=== PATIENT | female | born 1960 | race Caucasian/White ===

== ENCOUNTER → 2020-02-07 12:53 | Outpatient (CLI) | payer OTHER, SELFPAY ==
--- NOTE | ~2020-02-07 | CT_ITS ---
EXAMINATION: CT abdomen pelvis wo con DATE: 02/07/2020 13:08 INDICATION: Right periumbilical pain, flank pain. Normal urinalysis. TECHNIQUE: Computed tomography (CT) of the abdomen and pelvis was performed without intravenous contr ast. Automated exposure control and iterative reconstruction technique were employed. Exam dose: 909 .13 mGy-cm total exam DLP. COMPARISON: 02/21/2015 CT abdomen pelvis. FINDINGS: The lung bases are clear of infiltrate or consolidation. Status post cholecystectomy. No hepatic, splenic, pancreatic, adrenal or renal space occupying mass lesion is detected. No bile duct or pancreatic duct dilatation. No urinary tract calculus or hydroureteronephrosis. The urinary bladder, uterus and adnexal areas are unremarkable. Normal appendix. There is no evidence of appendicitis. There is a prominent amount of fecal material in the rectum and colon but no bowel obstruction. No bowel wall thickening, pneumatosis or intraperit wallace free air is evident. There is minimal colonic diverticulosis; no CT evidence of diverticulitis. Normal caliber and minimal calcification of the abdominal aorta. No intraperitoneal or retroperitonea l or pelvic mass lesion or adenopathy or ascites. Included skeletal structures are unremarkable, with the exception of severe degenerative disc disease and mild associated retrolisthesis at L5-S1, and degenerative spurring of the lower thoracic spine a nd lumbar apophyseal joints. IMPRESSION: Normal appendix No urinary tract calculus or hydroureteronephrosis Status post cholecystectomy Reviewed, dictated and finalized at Location A. Reviewed, dictated and finalized at location B.
== END ==
PROVIDERS: Visit Provider Family Medicine
DX: R10.9 Unspecified abdominal pain (principal); Z90.49 Acquired absence of other specified parts of digestive tract
CPT/HCPCS: 74176

== ENCOUNTER 2021-04-15 14:56 | Outpatient (CLI) | payer OTHER, SELFPAY ==
--- NOTE | ~2021-04-15 | DEXA_ITS ---
Bone Density Report Name: Renée Becerra Age: 61 Sex: Female Ethnicity: White Date of : 1960 Indication: postmenopausal; asthma or emphysema; Referring Provider: LYN DICKINSON Study: Bone densitometry was performed. Exam Date: April 15, 2021 Accession number: [id number] Bone Density: Region BMD T-score Z-score Classification AP Spine (L1-L4) 1.153 1.0 2.6 Normal Femoral Neck (Left) 0.740 -1.0 0.4 Normal Total Hip (Left) 0.967 0.2 1.3 Normal Total Hip Bilateral Avg 0.972 0.3 1.4 Normal Femoral Neck (Right) 0.815 -0.3 1.1 Normal Total Hip (Right) 0.976 0.3 1.4 Normal World Health Organization criteria for BMD impression classify patients as: Normal (T-score at or above -1.0), Osteopenia (T-score between -1.0 and -2.5), or Osteoporosis (T-score at or below -2.5). 10-year Fracture Risk: FRAX not reported because: All T-scores for Spine Total, Hip Total, Femoral Neck at or above -1.0 Previous Exams: Region Exam Age BMD T-score BMD Change BMD Change Date g/cm2 vs Baseline vs Previous AP Spine(L1-L4) 04/15/2021 61 1.153 1.0 0.018(1.6%)# 0.062(5.7%)* 08/04/2013 53 1.091 0.4 -0.044(-3.9%)# -0.044(-3.9%)# 01/21/2009 48 1.135 0.8 Total Hip(Left) 04/15/2021 61 0.967 0.2 0.004(0.4%)# -0.021(-2.1%) 08/04/2013 53 0.988 0.4 0.025(2.6%)# 0.025(2.6%)# 01/21/2009 48 0.963 0.2 Total Hip(Right) 04/15/2021 61 0.976 0.3 0.038(4.0%)# -0.003(-0.3%) 08/04/2013 53 0.979 0.3 0.040(4.3%)# 0.040(4.3%)# 01/21/2009 48 0.938 0.0 *Denotes significance at 95% confidence level, LSC for AP Spine = 0.022 g/cm2, LSC for Total Hip = 0.027 g/cm2 Clinical Information Provided by Patient: Has used the following medications: Vitamin D, Calcium Has the following medical conditions: Asthma or Emphysema Patient maximum height was 63.5 Menopause Age: 50 Onset of menses at age 12 Number of children 3 Impression: The patient has normal bone mass. No significant bone loss was observed. Discussion: BONE DENSITY IS ABOVE THE MINIMUM DESIRABLE LEVEL AT ALL SKELETAL SITES TESTED. This patient?s bone mineral density is above the minimum desirable level (T-score -1.0 or better) at all sites measured. The patient should follow a healthful lifestyle (good nutrition with adequate calcium and vitamin D, and appropriate weight-bearing exercise). Follow-Up: Consider repeating this study in 5 years or sooner if there
--- NOTE | ~2021-04-15 | MM_ITS ---
EXAMINATION: MM screening hayley BI w zach HISTORY: Screening mammogram TECHNIQUE: Craniocaudal and mediolateral oblique 3-D tomosynthesis images were obtained and synthetic 2-D images were generated. CAD analysis was submitted and interpreted. COMPARISON: 10/20/2018, 06/08/2017, 05/16/2016 bilateral digital screening mammogram examinations BREAST PARENCHYMAL COMPOSITION: The breasts are almost entirely fatty. FINDINGS: There is no evidence of suspicious mass, calcification, or architectural distortion to sugg est malignancy in either breast. There has been no suspicious interval change. IMPRESSION: 1. No mammographic evidence of malignancy. 2. Recommend routine screening mammography in one year. BI-RADS Category 1: Negative Reviewed, dictated and finalized at location A.
== END 2021-04-15 14:57 | disposition home or self-care (01) ==
LOC: ANHIMG 14:57
PROVIDERS: PCP Family Medicine; Visit Provider Family Medicine
DX: Z12.31 Encounter for screening mammogram for malignant neoplasm of breast (principal); Z13.820 Encounter for screening for osteoporosis
CPT/HCPCS: 77063; 77067; 77080

== ENCOUNTER 2022-10-10 11:23 | Outpatient (CLI) | payer OTHER, SELFPAY ==
--- NOTE | ~2022-10-10 | MM_ITS ---
EXAMINATION: MM screening hayley BI w zach HISTORY: Screening mammogram TECHNIQUE: Craniocaudal and mediolateral oblique 3-D tomosynthesis images were obtained and synthetic 2-D images were generated. CAD analysis was submitted and interpreted. COMPARISON: 04/15/2021, 10/20/2018, 06/08/2017 bilateral screening mammogram examinations BREAST PARENCHYMAL COMPOSITION: The breasts are almost entirely fatty. FINDINGS: There is no evidence of suspicious mass, calcification, or architectural distortion to sugg est malignancy in either breast. There has been no suspicious interval change. IMPRESSION: 1. No mammographic evidence of malignancy. 2. Recommend routine screening mammography in one year. BI-RADS Category 1: Negative Reviewed, dictated and finalized at location A. INE CELL TUBER
== END 2022-10-10 11:24 | disposition home or self-care (01) ==
LOC: ANHIMG 11:25
PROVIDERS: PCP Family Medicine; Visit Provider Physician Assistant
DX: Z12.31 Encounter for screening mammogram for malignant neoplasm of breast (principal)
CPT/HCPCS: 77063; 77067

== ENCOUNTER → 2023-01-21 13:04 | Outpatient (CLI) | payer OTHER, SELFPAY ==
--- NOTE | ~2023-01-21 | XR_ITS ---
XR chest 2V 01/21/2023 13:18 Indication: Shortness of breath. Exercise-induced asthma. Procedure: 2 view chest Comparison: Comparison to multiple prior studies sequentially, with oldest reviewed study dated 02/2013. Findings: Heart size normal. Prominent right cardiophrenic angle fat pad. No focal air space disease, pulmonary edema, pleural effusion or suspected pneumothorax. No acute osseous abnormality. Impression: 1: No acute cardiopulmonary disease. Reviewed, dictated and finalized at location L. REGULATORY AFFAIRS SPECIALIST Impression: 1: No acute cardiopulmonary disease.
== END ==
PROVIDERS: PCP Family Medicine; Visit Provider Physician Assistant
DX: R06.02 Shortness of breath (principal)
CPT/HCPCS: 71046

== ENCOUNTER 2023-02-16 07:28 | Outpatient (CLI) | payer OTHER, SELFPAY ==
--- NOTE | 2023-02-16 07:33 | ECHO_ITS ---
Patient Info Name: Renée Becerra Age: 62 years : 1960 Gender: Female Ht: 63 in Wt: 190 lbs BSA: 1.99 m2 HR: 79 bpm BP: 153 / 94 mmHg Technical Quality: Good Exam Date: 02/16/2023 7:39 AM Exam Location: [facility] Pulmonary Patient Status: Outpatient Admit Date: 02/16/2023 Staff Ordering Physician: Gerald Saleh PA-C Artist Mannequin Coloring: Tila Conklin RDCS Attending Provider: Gerald Saleh PA-C Referring Physician: Delfino LEAL; Exam Type: CA echo doppler color flow Study Info Indications R06.02 - Shortness of breath Complete two-dimensional, color flow and Doppler transthoracic echocardiogram is performed. Summary 1. Complete two-dimensional, color flow and Doppler transthoracic echocardiogram is performed. 2. Left ventricular chamber dimension is normal. 3. Left ventricular systolic function is normal, estimated at 60-65%. 4. The left ventricular diastolic function is grade I diastolic dysfunction. 5. Global longitudinal strain is mildly abnormal at -16.5%. 6. There is mild aortic valve sclerosis. 7. There is trace aortic valve regurgitation. 8. There is trace tricuspid valve regurgitation. 9. No pulmonary hypertension, estimated pulmonary arterial systolic pressure is 20 mmHg. 10. There is trace pulmonic regurgitation. Left Ventricle Tissue doppler E/e' is not calculated. Global longitudinal strain is mildly abnormal at -16.5%. Left ventricular chamber dimension is normal. Left ventricular systolic function is normal, estimated at 60-65%. The left ventricular diastolic function is grade I diastolic dysfunction. Right Ventricle Right ventricular systolic function is normal and with normal TAPSE 1.9 cm.. Right ventricular chamber dimension is normal. Left Atria Left atrial chamber dimension is normal. Right Atria Right atrial chamber dimension is normal. Aortic Valve The aortic valve is trileaflet. There is mild aortic valve sclerosis. There is no aortic valve stenosis. There is trace aortic valve regurgitation. Pulmonic Valve There is trace pulmonic regurgitation. Mitral Valve There is no mitral valve stenosis. There is no mitral valve regurgitation. Tricuspid Valve There is trace tricuspid valve regurgitation. No pulmonary hypertension, estimated pulmonary arterial systolic pressure is 20 mmHg. Pericardium/Pleural There is no pericardial effusion. Inferior Vena Cava Normal inferior vena cava with >50% collapse upon inspiration consistent with normal right atrial pressure, 5 mmHg. Aorta The aortic root size at the sinus of Valsalva is normal. Left Ventricular Outflow Tract Name Value Normal LVOT 2D LVOT Diameter 1.9 cm LVOT Doppler LVOT Peak Gradient 4 mmHg LVOT Mean Gradient 3 mmHg LVOT VTI 21 cm LVOT VTI/AV VTI Ratio 0.8 LVOT Stroke Volume 58 ml LVOT CO 4.4 l/min LVOT CI 2.2 l/min/m2 Pulmonic Valve
--- NOTE | 2023-02-16 07:33 | EST_ITS ---
Patient Info Name: Renée Becerra Age: 62 years : 1960 Gender: Female Ht: 63 in Wt: 190 lbs BSA: 1.99 m2 HR: 78 bpm BP: 160 / 78 mmHg Heart Rhythm: Sinus Rhythm Exam Date: 02/16/2023 8:29 AM Exam Location: [facility] Stress Patient Status: Outpatient Admit Date: 02/16/2023 Staff Ordering Physician: Gerald Saleh PA-C Attending Provider: Gerald Saleh PA-C Exercise Technologist: Dayana Silver CT Exercise Physician: Arley Rodriguez DO Exam Type: CA stress test treadmill Study Info Indications R06.02 - Shortness of breath A treadmill exercise stress test was performed. Summary 1. 1. Negative Yuriy exercise stress test for ischemic ST changes by ECG criteria. 2. 2. Good functional capacity, achieving 9.8 METs of workload. 3. 3. Appropriate HR response to exercise. 4. 4. Appropriate HR recovery at 1 minute post exercise. 5. 5. No imaging with stress testing. 6. 6. Patient informed of the above results. Protocol: Yuriy Stress ECG Details Stage: REST Duration (min): 3 min : 10 sec Speed (mph): 0.0 Grade (%): 0 HR (bpm): 77 SBP (mmHg): 160 DBP (mmHg): 78 METS: --- Stage: REST Duration (min): 8 min : 10 sec Speed (mph): 0.0 Grade (%): 0 HR (bpm): 84 SBP (mmHg): 160 DBP (mmHg): 78 METS: --- Stage: STAGE 1 Duration (min): 1 min : 0 sec Speed (mph): 1.7 Grade (%): 10 HR (bpm): 99 SBP (mmHg): 160 DBP (mmHg): 78 METS: --- Stage: STAGE 1 Duration (min): 2 min : 0 sec Speed (mph): 1.7 Grade (%): 10 HR (bpm): 111 SBP (mmHg): 160 DBP (mmHg): 78 METS: --- Stage: STAGE 1 Duration (min): 3 min : 0 sec Speed (mph): 1.7 Grade (%): 10 HR (bpm): 117 SBP (mmHg): 110 DBP (mmHg): 64 METS: --- Stage: STAGE 2 Duration (min): 1 min : 0 sec Speed (mph): 2.5 Grade (%): 12 HR (bpm): 125 SBP (mmHg): 110 DBP (mmHg): 64 METS: --- Stage: STAGE 2 Duration (min): 2 min : 0 sec Speed (mph): 2.5 Grade (%): 12 HR (bpm): 127 SBP (mmHg): 115 DBP (mmHg): 52 METS: --- Stage: STAGE 2 Duration (min): 3 min : 0 sec Speed (mph): 2.5 Grade (%): 12 HR (bpm): 125 SBP (mmHg): 115 DBP (mmHg): 52 METS: --- Stage: STAGE 3 Duration (min): 1 min : 0 sec Speed (mph): 3.4 Grade (%): 14 HR (bpm): 132 SBP (mmHg): 115 DBP (mmHg): 52 METS: --- Stage: STAGE 3 Duration (min): 1 min : 30 sec Speed (mph): 3.4 Grade (%): 14 HR (bpm): 135 SBP (mmHg): 143 DBP (mmHg): 63 METS: --- Stage: RECOVERY Duration (min): 0 min : 29 sec Speed (mph): 0.0 Grade (%): 0 HR (bpm): 133 SBP (mmHg): 143 DBP (mmHg): 63 METS: --- Stage: RECOVERY Duration (min): 1 min : 29 sec Speed (mph): 0.0 Grade (%): 0 HR (bpm): 115 SBP (mmHg): 202 DBP (mmHg): 63 METS: ---
== END 2023-02-16 07:29 | disposition home or self-care (01) ==
LOC: ANHCARD 07:29
PROVIDERS: PCP Family Medicine; Visit Provider Physician Assistant
DX: R06.02 Shortness of breath (principal)
CPT/HCPCS: 93017; 93306

== ENCOUNTER 2023-03-04 14:31 | Outpatient (CLI) | payer OTHER, SELFPAY ==
--- NOTE | ~2023-03-04 | MR_ITS ---
EXAMINATION: MR brain IAC wo/w con DATE: 03/04/2023 15:52 INDICATION: Recurrent vertigo. TECHNIQUE: Magnetic resonance imaging (MRI) of the brain, brainstem, and internal auditory canals was performed without and with 17 mL MultiHance intravenous contrast. COMPARISON: None. FINDINGS: There are scattered areas of nonspecific increased T2-weighted signal intensity in the cere bral white matter and juliane. There is no intracranial hemorrhage, acute infarction, or abnormal intrac ranial mass lesion. The ventricles are normal in size. There is mild mucosal thickening in the parana poly sinuses. The orbits are normal. There is a small right mastoid effusion. The internal auditory ca nals and inner and middle ears are normal. IMPRESSION: 1. Moderate nonspecific cerebral white matter disease and pontine disease, which likely represents ch ronic small vessel ischemic disease. Reviewed, dictated and finalized at location A. IMPRESSION: 1. Moderate nonspecific cerebral white matter disease and pontine disease, whic h likely represents chronic small vessel ischemic disease.
== END 2023-03-04 14:32 | disposition home or self-care (01) ==
LOC: ANHIMG 14:32
PROVIDERS: PCP Family Medicine; Visit Provider Physician Assistant
DX: R42 Dizziness and giddiness (principal); R90.82 White matter disease, unspecified
CPT/HCPCS: 70553; A9577

== ENCOUNTER → 2023-06-28 15:17 | Outpatient (CLI) | payer MEDICARE, SELFPAY ==
--- NOTE | ~2023-06-28 | CT_ITS ---
EXAMINATION: CT sinus wo con DATE: 06/28/2023 15:36 INDICATION: Chronic maxillary sinusitis. Headache. TECHNIQUE: Computed tomography (CT) of the paranasal sinuses was performed without intravenous contra st. Iterative reconstruction technique was employed. The dose-length product was 365.34 mGy-cm. COMPARISON: Brain MRI 03/04/2023 FINDINGS: The frontal sinuses are clear. There is mild mucosal thickening in the bilateral anterior a nd posterior ethmoid sinuses. The sphenoid sinuses are clear. There are mucous retention cysts in rig ht maxillary sinus. There is mild mucosal thickening in right maxillary sinus near the ostium. There is a Evans cell on the right. The ostiomeatal units are patent. There is a left lateral spur of the nasal septum. IMPRESSION: 1. Mucosal thickening in the paranasal sinuses. Reviewed, dictated and finalized at location A.
== END ==
PROVIDERS: PCP Family Medicine; Visit Provider Family Medicine
DX: J32.0 Chronic maxillary sinusitis (principal)
CPT/HCPCS: 70486

== ENCOUNTER 2024-02-22 15:09 | Outpatient (CLI) | payer MEDICARE, SELFPAY ==
--- NOTE | ~2024-02-22 | MM_ITS ---
EXAMINATION: MM screening hayley BI w zach HISTORY: Screening TECHNIQUE: Craniocaudal and mediolateral oblique 3-D tomosynthesis images were obtained and synthetic 2-D images were generated. CAD analysis was submitted and interpreted. COMPARISON: Comparison to multiple prior studies sequentially, with oldest reviewed study dated 04/15. BREAST PARENCHYMAL COMPOSITION: Not dense: There are scattered areas of fibroglandular density. FINDINGS: There is no evidence of suspicious mass, calcification, or architectural distortion to sugg est malignancy in either breast. There has been no suspicious interval change. IMPRESSION: 1. No mammographic evidence of malignancy. 2. Recommend routine screening mammography in one year. BI-RADS Category 1: Negative Reviewed, dictated and finalized at location A.
== END 2024-02-22 15:10 | disposition home or self-care (01) ==
PROVIDERS: PCP Family Medicine; Visit Provider Nurse Practitioner Family
DX: Z12.31 Encounter for screening mammogram for malignant neoplasm of breast (principal)
CPT/HCPCS: 77063; 77067

== ENCOUNTER 2025-02-26 15:39 | Outpatient (CLI) | payer MEDICARE, SELFPAY ==
--- NOTE | ~2025-02-26 | MM_ITS ---
EXAMINATION: MM screening [facility] BI w zach HISTORY: Screening TECHNIQUE: Craniocaudal and mediolateral oblique 3-D tomosynthesis images were obtained and synthetic 2-D images were generated. CAD analysis was submitted and interpreted. COMPARISON: Comparison to multiple prior studies sequentially, with oldest reviewed study dated 05/16. BREAST PARENCHYMAL COMPOSITION: Not dense: There are scattered areas of fibroglandular density. FINDINGS: There is no evidence of suspicious mass, calcification, or architectural distortion to sugg est malignancy in either breast. There has been no suspicious interval change. IMPRESSION: 1. No mammographic evidence of malignancy. 2. Recommend routine screening mammography in one year. BI-RADS Category 1: Negative Reviewed, dictated and finalized at location A.
--- OUTSIDE RECORDS SUMMARY | 2025-02-26 17:38 | XMS_ITS | Referral Summary ---
Author Organization [facility] [address] Address [address] [place] [id number] Care Team Providers Care Concert Pianist Name Role Phone Rosie Armas MD Primary Care Provider + Allergies Active Allergy Reactions Criticality Noted Date Comments Cefaclor Hives Medium 03/13/2022 Penicillins Hives Medium 03/13/2022 Medications Accutane 40 mg capsule 02/20/2022 Active sertraline (ZOLOFT) 25 mg tablet 02/04/2022 Active azithromycin (ZITHROMAX) 250 mg tabletIndication s:Non-recurrent acute suppurative otitis media of right ear without spontaneous rupture of tympanic membrane Take 2 tablets the first day, then 1 tablet daily for 4 days. 6 tablet 03/13/2022 Active tretinoin (RETIN-A) 0.025 % creamIndications :Rosacea Apply thin layer once each week to face 45 g 3 05/26/2024 Active Active Problems No known active problems Social History Tobacco Use Types Packs/Day Years Used Date Smoking Tobacco: Never Smokeless Tobacco: Never AUDIT-C Answer Date Recorded Q1: How often do you have a drink containing alc ohol? Monthly or less 03/13/2022 Q2: How many drinks containi ng alcohol do you have on a typical day when you are drinking? 1 or 2 03/13/2022 Q3: How often do you have si x or more drinks on one occasion? 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 Gender Identity Not on file Sexual Orientation Not on file Last Filed Vital Signs Vital Sign Reading Time Taken Comments Blood Pressure 147/83 03/13/2022 10:26 AM CDT Pulse 76 03/13/2022 10:26 AM CDT Temperature 36.4 C (97.5 F) 03/13/2022 10:26 AM CDT Respiratory Rate 18 03/13/2022 10:26 AM CDT Oxygen Saturation 97% 03/13/2022 10:26 AM CDT Inhaled Oxygen Concentration - - Weight 80 kg (176 lb 4.8 oz) 03/13/2022 10:26 AM CDT Height 160 cm (5' 3 ) 03/13/2022 10:26 AM CDT Body Mass Index 31.23 03/13/2022 10:26 AM CDT Plan of Treatment Not on file Insurance [facility] [id number] [facility] [id number] Care Teams Concert Pianist Relationship Specialty Start Date End Date Rosie Armas MD PCP - General Family Medicine 03/13/22
--- OUTSIDE RECORDS SUMMARY | 2025-02-26 17:38 | XMS_ITS | Clinical Summary ---
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 Gender Identity Not on file Sexual Orientation Not on file Obstetrics History Last Filed Vital Signs Vital Sign Reading [...] 03/13/2022 10:26 AM CDT Plan of Treatment Health Maintenance Due Date Last Done Comments Breast Cancer Screening-Mammogram 1960 Colon Cancer Screening-Colonoscopy 1960 Depression Screening 1960 Fall Risk Assessment 1960 Hepatitis C Screening 1960 Osteoporosis Screening-Bone Density Scan 1960 Hepatitis B Screening 1976 Pneumococcal vaccine 65+ (1 of 1 - PCV) 2008 Well Visit 65+ 2023 Covid-19 Vaccine (5 - 2023-2 5 season) 2024 03/03/2022, 09/22/2021, 02/10/2021, Additional history exists Influenza Vaccine (#1) 2024 , 08/30/2020, 09/28/2019, Additional history exists DTaP/Tdap/Td Vaccine (2 - Td or Tdap) 03/05/2031 03/05/2021 Zoster Vaccine Completed 12/29/2019, 09/28/2019 Insurance [facility] [id number] [facility] [id number] Care Teams Hog Worker Relationship Specialty Start Date End Date Rosie Armas MD PCP - General Family Medicine 03/13/22
== END 2025-02-26 15:40 | disposition home or self-care (01) ==
LOC: ANHIMG 15:40
PROVIDERS: PCP Family Medicine; Visit Provider Nurse Practitioner Family
DX: Z12.31 Encounter for screening mammogram for malignant neoplasm of breast (principal)
CPT/HCPCS: 77063; 77067

== ENCOUNTER 2025-09-28 10:34 | Outpatient (CLI) | payer MEDICARE, SELFPAY ==
--- OUTSIDE RECORDS SUMMARY | 2025-09-28 11:13 | XMS_ITS | Clinical Summary ---
Author Organization [facility] [address] Address [address] [place] [phone] Care Team Providers Care Director Financial Analysis Name Role Phone Rosie Armas MD Primary [...] to face 45 g 3 05/26/2024 Active minoxidiL (LONITEN) 2.5 mg tabletIndication s:hypertension Take 1/2 tablet once daily for hair loss 45 tablet 1 07/17/2025 Active Active Problems No known active problems Encounters Date Type Department Care Team Description 07/17/2025 2:00 PM CDT Clinical Support [facility] Medicine Dermatology [address] [place] [address] [address] Maddy Jackson KEISHA [phone] Lisha Burgos MD Telogen effluvium (Primary Dx); Rosacea, unspecified from Last 3 Months Social History Tobacco Use Types Packs/Day Years [...] on file 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 Gender Identity Not on file Sexual Orientation [...] 10:26 AM CDT Height 160 cm (5' 3) 03/13/2022 10:26 AM CDT Body Mass Index 31.23 03/13/2022 10:26 AM CDT Plan of Treatment Health Maintenance Due Date Last Done Comments Breast Cancer Screening-Mammogram 1960 Colon Cancer Screening-Colonoscopy 1960 Depression Screening 1960 Fall Risk Assessment 1960 Hepatitis C Screening 1960 Osteoporosis Screening-Bone Density Scan 1960 Pneumococcal vaccine 65+ (1 of 1 - PCV) 2008 Well Visit 65+ 2023 Covid-19 Vaccine (5 - 2024-2 6 season) 2025 03/03/2022, 09/22/2021, 02/10/2021, Additional history exists Influenza Vaccine (#1) 2025 , 08/21/2021, 08/30/2020, Additional history exists DTaP/Tdap/Td Vaccine (3 - Td or Tdap) 03/05/2031 03/05/2021, 06/24/2010, 09/01/2000 Hepatitis B Screening Completed 11/08/2017 Zoster Vaccine Completed 12/29/2019, 09/28/2019 Insurance [facility] [id number] [employer] MED[employer] Care Teams Director Financial Analysis Relationship Specialty Start Date End Date Rosie Armas MD PCP - General Family Medicine 03/13/22
[2025-09-28 12:54] LABS: Hematocrit 43.9 % (37.0-47.0); Hemoglobin 14.7 g/dL (12.0-15.0); Immature Granulocyte Percent A 0.2 % (0-0.5); Lymphocytes Absolute Auto 1.29 K/mm3 (0.9-3.2); Mean Corpuscular HGB Conc 33.5 g/dl (32-36); Mean Corpuscular Hemoglobin 31.2 pg (26-34); Mean Corpuscular Volume 93.2 fl (80-100); Nucleated Red Blood Cells Absolute Auto 0.000 K/mm3 (0.0-0.012); Nucleated Red Blood Cells Perc 0.0 % (0.0-0.2); Platelet Count Result 363 k/mm3 (150-375); Red Blood Count 4.71 M/mm3 (4.2-5.4); White Blood Count 5.2 K/mm3 (4.5-10.0)
[2025-09-28 13:15] LABS: Alanine Aminotransferase 29 U/L (6-35); Albumin Level 4.8 g/dL (3.5-5.1); Alkaline Phosphatase 68 U/L (38-126); Anion Gap 7 mmol/L (4-12); Aspartate Amino Transferase 51 U/L (14-36); Bilirubin,Total 0.3 mg/dL (0.2-1.3); Blood Urea Nitrogen 26 mg/dL (7-17); Calcium 9.9 mg/dL (8.4-10.2); Carbon Dioxide 27 mmol/L (22-30); Chloride 102 mmol/L (98-107); Cholesterol 232 mg/dL (0-200); Estimated Glomerular Filt Rate > 60; Glucose 78 mg/dL (65-110); HDL Direct 48 mg/dL; Potassium 4.3 mmol/L (3.4-5.0); Sodium 136 mmol/L (137-145); Total Protein 8.2 g/dL (6.3-8.2); Triglycerides 127 mg/dL (<150)
[2025-09-28 13:54] LABS: Thyroid Stimulating Hormone 1.530 uIU/mL (0.465-4.680)
[2025-09-28 14:12] LABS: Vitamin B12 910.0 pg/mL (239-931)
== END 2025-09-28 10:35 | disposition home or self-care (01) ==
PROVIDERS: PCP Family Medicine; Visit Provider Family Medicine
DX: E55.9 Vitamin D deficiency, unspecified (principal); E78.2 Mixed hyperlipidemia; R53.83 Other fatigue; E04.9 Nontoxic goiter, unspecified; Z78.0 Asymptomatic menopausal state
CPT/HCPCS: 36415; 80053; 80061; 82306; 82607; 84443; 85025